=== PATIENT | female | born 1975 | race Hispanic/Latino ===

== ENCOUNTER 2023-10-31 18:14 | Emergency (ER) | payer BC ==
[~2023-10-31] VITALS: Ht 149.9 cm; Wt 86.2 kg
[2023-10-31] MEDS ORDERED: NAPR-1180 PO (18:57)
[2023-10-31] MEDS ORDERED: LIDOP TP (18:57)
[2023-10-31] MEDS ORDERED: CYCL-309 PO (18:57)
[2023-10-31] MEDS: DIAZEPAM 5 MG TABLET PO ONE (19:24)
[2023-10-31] MEDS: LIDOCAINE 5% TOPICAL PATCH TP ONE (19:24)
[2023-10-31 19:26] VITALS: BP 142/75; PULSE 74; RESP 18; O2SAT 99
== END 2023-10-31 19:42 | disposition home or self-care (01) ==
LOC: EDH 18:14
DX: M62.831 Muscle spasm of calf (principal); M25.512 Pain in left shoulder; I10 Essential (primary) hypertension; E11.9 Type 2 diabetes mellitus without complications; Z90.49 Acquired absence of other specified parts of digestive tract; Z98.890 Other specified postprocedural states
CPT/HCPCS: 93005